=== PATIENT | female | born 1940 | race Caucasian/White ===

== ENCOUNTER 2017-09-08 12:41 | Emergency (ER) | payer MEDICARE ==
[2017-09-08 12:57] VITALS: BP 143/83
[2017-09-08] MEDS ORDERED: Doxycycline 100 MG Cap PO ONE (13:15)
--- NOTE | 2017-09-08 13:18 | EDM.PDOC ---
ED HPI GENERAL MEDICAL PROBLEM - General Chief Complaint: Bite:Animal, Insect Stated Complaint: TICK BITE UPPER LT THIGH Time Seen by Provider: 09/08/17 12:53 Source of Information: Reports: Patient History Limitations: Reports: No Limitations - History of Present Illness INITIAL COMMENTS - FREE TEXT/NARRATIVE: 76 yo presents with tick bit to left upper leg. tick was removed 48 hours ago. area of bite is mildly itchy and red. denies fever, chills, or headache - Related Data Allergies Allergy/AdvReac Type Severity Reaction Status Date / Time No Known Allergies Allergy Verified 09/08/17 12:52 Home Meds: Home Meds Aspirin [Low Dose Aspirin EC] 81 mg PO DAILY 10/27/15 [History] Levothyroxine 112 mcg PO DAILY 10/27/15 [History] Past Medical History HEENT History: Reports: Cataract DRILL HAND History: Reports: Musculoskeletal History: Reports: Arthritis, Osteoporosis Endocrine/Metabolic History: Reports: Hypothyroidism Oncologic (Cancer) History: Reports: Basal Cell Carcinoma, Squamous Cell Carcinoma - Past Surgical History HEENT Surgical History: Reports: Cataract Surgery, Tonsillectomy GI Surgical History: Reports: Colonoscopy, Hernia Repair/Other Endocrine Surgical History: Reports: Thyroidectomy Social & Family History - Family History Cardiac: Reports: [place] Neurological: Reports: CVA - Tobacco Use Smoking Status *Q: Never Smoker ED ROS GENERAL - Review of Systems Review Of Systems: See Below Constitutional: Denies: Fever, Chills, Malaise Respiratory: Denies: Shortness of Breath, Wheezing Cardiovascular: Denies: Chest Pain ED EXAM, ANIMAL BITE - Physical Exam Exam: See Below Exam Limited By: No Limitations General Appearance: Alert, WD/WN, No Apparent Distress Respiratory/Chest: No Respiratory Distress Skin Exam: Rash (left upper thigh hive at bite site, mild erythema) Course - Vital Signs Last Recorded V/S: Last Vital Signs Temp 36.1 C 09/08/17 12:56 Pulse 80 09/08/17 12:56 Resp 13 09/08/17 12:56 BP 143/83 H 09/08/17 12:56 Pulse Ox 96 09/08/17 12:56 - Orders/Labs/Meds Orders: Active Orders 24 hr Category Date Time Status Doxycycline [Vibramycin] Med 09/08/17 13:15 Once 200 mg PO ONETIME ONE - Re-Assessments/Exams Free Text/Narrative Re-Assessment/Exam: 09/08/17 13:17 prophylactic doxycycline given in Er Departure - Departure Time of Disposition: 13:17 Disposition: Home, Self-Care 01 Condition: Good Clinical Impression: Tick bite of left thigh Qualifiers: Encounter type: initial encounter Qualified Code(s): S70.362A - Insect bite ( nonvenomous), left thigh, initial encounter; W57.XXXA - Bitten or stung by nonvenomous insect and other nonvenomous arthropods, initial encounter - Discharge Information Referrals: PCP,None [Primary Care Provider] - Additional Instructions: wash with warm soapy water. may use OTC hydrocortisone for itching relief - My Orders Last 24 Hours: My Active Orders 09/08/17 13:15 Doxycycline [Vibramycin] 200 mg PO ONETIME ONE - Assessment/Plan Last 24 Hours: My Active Orders 09/08/17 13:15 Doxycycline [Vibramycin] 200 mg PO ONETIME ONE
== END 2017-09-08 13:28 | disposition home or self-care (01) ==
LOC: JP.ED 12:41
DX: S70.362A Insect bite (nonvenomous), left thigh, initial encounter (principal); E03.9 Hypothyroidism, unspecified; W57.XXXA Bitten or stung by nonvenomous insect and other nonvenomous arthropods, initial encounter; Z79.82 Long term (current) use of aspirin; Z79.899 Other long term (current) drug therapy
CPT/HCPCS: 99283; A9270